=== PATIENT | male | born 1980 | race Two or more races ===

== ENCOUNTER 2018-03-03 19:42 | Emergency (ER) | payer MEDICARE, OTHER ==
[~2018-03-03] VITALS: Ht 185.4 cm; Wt 61.2 kg
[2018-03-03 19:57] VITALS: BP 147/95
== END 2018-03-03 21:28 | disposition home or self-care (01) ==
LOC: ER 19:42
DX: S60.111A Contusion of right thumb with damage to nail, initial encounter (principal); W23.0XXA Caught, crushed, jammed, or pinched between moving objects, initial encounter; Y93.89 Activity, other specified; Y92.89 Other specified places as the place of occurrence of the external cause; Y99.8 Other external cause status
CPT/HCPCS: 73130

== ENCOUNTER → 2019-11-22 | Emergency (ER) | payer MEDICARE, OTHER ==
[~2019-11-22] VITALS: Ht 185.4 cm; Wt 61.2 kg
[~2019-11-22] MED LIST: FLUORESCEIN SOD 1 MG TEST STRIP LEFTEYE ONE; TETRACAINE HCL 0.5% OPTH(EYE) SOLN 4ML LEFTEYE ONE
[2019-11-22 08:52] LABS: Basophils # (auto) 0 10 ^3/uL (0-0.2); Basophils % (auto) 0.5 % (0.0-2.0); Eosinophils # (auto) 0 10 ^3/uL (0-0.8); Eosinophils % (auto) 0.2 % (0.0-7.0); Hemoglobin 15.2 g/dL (13.5-17.5); Lymphocytes # (auto) 0.5 10 ^3/uL (0.4-5.4); Lymphocytes % (auto) 10.8 % (10.0-50.0); Mean Corpuscular Hemoglobin 31.1 pg (28.0-32.0); Mean Corpuscular Hgb Conc. 34.6 g/dL (32.0-36.0); Mean Corpuscular Volume 89.7 fL (80.0-100.0); Monocytes # (auto) 0.3 10 ^3/uL (0-1.3); Monocytes % (auto) 7.1 % (0.0-12.0); Neutrophils # (auto) 3.9 10 ^3/uL (1.6-8.6); Neutrophils % (auto) 81.4 % (37.0-80.0); Nucleated Red Blood Cells % 0.2 %; Platelet Count (auto) 75 10^3/uL (140-450); Red Cell Distribution Width 13.6 % (11.8-14.3); White Blood Cell 4.7 10^3/uL (4.4-10.8)
[2019-11-22 09:08] LABS: Albumin 4.1 g/dL (3.4-5.0); Calcium 8.8 mg/dL (8.5-10.1)
[2019-11-22 09:11] LABS: Bilirubin, Total 3.4 mg/dL (0.2-1.0); Total Protein 7.6 g/dL (6.4-8.2)
[2019-11-22 09:12] LABS: INR 1.3 (0.9-1.15)
[2019-11-22 10:46] VITALS: BP 124/77
== END | disposition short-term general hospital (02) ==
LOC: ER 06:11
DX: S05.12XA Contusion of eyeball and orbital tissues, left eye, initial encounter (principal); R51 Headache; W22.8XXA Striking against or struck by other objects, initial encounter; Y93.89 Activity, other specified; Y92.89 Other specified places as the place of occurrence of the external cause; Y99.8 Other external cause status
CPT/HCPCS: 36415; 80053; 80162; 85025; 85610; 85730